=== PATIENT | female | born 1965 | race Caucasian/White ===

== ENCOUNTER 2025-04-22 17:19 | Inpatient (IN) ==
[2025-04-22] MEDS: ACETAMINOPHEN 1,000 MG/100 ML BAG IV ONE (17:52)
[2025-04-22 18:42] LABS: INR 1.2 (0.9-1.1); Prothrombin Time 16.7 sec (11.9-14.5)
[2025-04-22 18:46] LABS: ALT/SGPT 24 U/L (<40); AST/SGOT 37 U/L (<32); Albumin 3.0 gm/dL (3.2-5.2); Albumin/Globulin Ratio 0.9 (1.0-2.3); Alkaline Phosphatase 140 U/L (39-117); Anion Gap 16.0 (8.0-16.0); Bilirubin,Total 0.7 mg/dL (0.1-1.0); Blood Urea Nitrogen 37 mg/dL (6-20); Calcium 8.4 mg/dL (8.6-10.4); Carbon Dioxide 18 mmol/L (22-30); Chloride 91 mmol/L (96-108); Globulin 3.3 gm/dL (2.2-3.7); Glucose 315 mg/dL (70-105); Potassium 4.0 mmol/L (3.3-5.1); Sodium 125 mmol/L (133-145)
[2025-04-22 18:57] LABS: Basophils # (Auto) 0 K/mcL (0.00-0.30); Basophils % (Auto) 0 % (0.0-2.0); Eosinophils # (Auto) 0 K/mcL (0.00-0.70); Eosinophils % (Auto) 0 % (0.0-7.0); Hematocrit 39.6 % (34.1-44.9); Hemoglobin 13.4 g/dL (11.2-15.7); Lymphocytes # (Auto) 0.46 K/mcL (1.50-4.80); Lymphocytes % (Auto) 3.7 % (15.5-49.0); Mean Corpuscular HGB Conc 33.8 g/dL (31.0-36.0); Monocytes # (Auto) 0.38 K/mcL (0.10-0.90); Monocytes % (Auto) 3.0 % (1.0-12.0); Neutrophils % (Auto) 93.0 % (38.0-78.0); Platelet Count 110 K/mcL (140-440); RBC 4.40 M/mcL (3.59-5.38); WBC 12.5 K/mcL (4.5-11.0)
[2025-04-22] MEDS: KETOROLAC 15 MG/ML VIAL IV ONE (19:09)
[2025-04-22] MEDS: 0.9 % SODIUM CHLORIDE 1,915 ML IV ONE (19:13)
[2025-04-22] MEDS: PIPERACILLIN SODIUM/TAZOBACTAM 3.375 GM in DEXTROSE 5% IN WATER 50 ML IV ONE (20:05)
[2025-04-22 20:31] LABS: Bacteria,Urine Many /hpf (0); Bilirubin,Urine Negative (Negative); Color,Urine YELLOW; Glucose,Urine (UA) 250 mg/dL (Negative); Ketones,Urine TRACE mg/dL (Negative); Leukocyte Esterase,Urine MODERATE /uL (Negative); PH,Urine 6.0 (5.0-9.0); Protein,Urine 100 mg/dL (Negative); Specific Gravity,Urine 1.025 (1.000-1.035); Urobilinogen,Urine 1.0 mg/dL
[2025-04-22] MEDS ORDERED: fentaNYL 100 MCG/2 ML VIAL ONE (21:10)
[2025-04-22] MEDS ORDERED: PROPOFOL 200 MG/20 ML VIAL IV ONE (21:10)
[2025-04-22] MEDS ORDERED: FAMOTIDINE/PF 20 MG/2 ML VIAL IV ONE (21:11)
[2025-04-22] MEDS ORDERED: LIDOCAINE 2% PF 5 ML VIAL ONE (21:11)
[2025-04-22] MEDS ORDERED: ONDANSETRON 4 MG/2 ML VIAL ONE (21:11)
[2025-04-22] MEDS ORDERED: DEXAMETHASONE 10 MG/ML VIAL ONE (21:11)
[2025-04-22] MEDS ORDERED: GLYCOPYRROLATE 0.2 MG/ML VIAL IV ONE (21:11)
[2025-04-22] MEDS ORDERED: MAGNESIUM SULFATE 2 GM/50 ML BAG IV ONE (21:11)
[2025-04-22] MEDS ORDERED: PHENYLephrine 1 MG/10 ML SYRINGE (ANEST) ONE (21:25)
[2025-04-22] MEDS ORDERED: VASOPRESSIN 20 UNIT/ML VIAL ONE (21:25)
[2025-04-22] MEDS ORDERED: 0.9 % SODIUM CHLORIDE 100 ML IV ONE (21:25)
[2025-04-22] MEDS ORDERED: DEXTROSE 50% 50 ML VIAL IV PRN (21:33)
[2025-04-22] MEDS ORDERED: DEXTROSE 31 GM ORAL.SUSP PO PRN (21:33)
[2025-04-22] MEDS: IOVERSOL 50 ML VIAL IJ ONE (22:00)
[2025-04-22] MEDS: LIDOCAINE 2% URO-JET 10 ML JEL.PF.APP UR ONE (22:05)
[2025-04-22] MEDS ORDERED: ONDANSETRON 4 MG/2 ML VIAL IV PRN (22:06)
[2025-04-22] MEDS ORDERED: IPRATROPIUM/ALBUTEROL 3 ML AMPUL.NEB NEB PRN ×2 (22:06→22:57)
[2025-04-22] MEDS ORDERED: HYDROmorphone 0.5 MG/0.5 ML SYRINGE IV PRN (22:06)
[2025-04-22] MEDS ORDERED: METHOCARBAMOL 1,000 MG/10 ML VIAL IV PRN (22:06)
[2025-04-22] MEDS ORDERED: fentaNYL 100 MCG/2 ML VIAL IV PRN (22:06)
[2025-04-22] MEDS ORDERED: BENZOCAINE/MENTHOL 1 LOZENGE PO PRN (22:06)
[2025-04-22] MEDS ORDERED: NALOXONE HCL 0.4 MG/ML VIAL IV PRN (22:06)
[2025-04-22] MEDS ORDERED: NOREPINEPHRINE BITARTRATE 8 MG in 0.9 % SODIUM CHLORIDE 242 ML IV PRN (22:57)
[2025-04-22] MEDS ORDERED: ACETAMINOPHEN 1,000 MG/100 ML BAG IV PRN (22:57)
[2025-04-22] MEDS ORDERED: SENNOSIDES 1 TABLET PO PRN (22:57)
[2025-04-22] MEDS: LACTATED RINGERS 1,000 ML IV ONE (23:11)
[2025-04-22] MEDS: LACTATED RINGERS 1,000 ML IV SCH (23:15)
[2025-04-22] MEDS: CEFEPIME 2 GM VIAL IV SCH (23:15)
[2025-04-22] MEDS: 0.9 % SODIUM CHLORIDE 250 ML IV SCH (23:16)
[2025-04-22] MEDS: 0.9 % SODIUM CHLORIDE 10 ML SYRINGE IV SCH (23:16)
[2025-04-23] MEDS: CEFEPIME 1 GM VIAL ONE (00:10)
[2025-04-23 00:44] LABS: Anion Gap 15.5 (8.0-16.0); Blood Urea Nitrogen 39 mg/dL (6-20); Calcium 7.9 mg/dL (8.6-10.4); Carbon Dioxide 19 mmol/L (22-30); Chloride 94 mmol/L (96-108); Glucose 299 mg/dL (70-105); Potassium 4.3 mmol/L (3.3-5.1); Sodium 129 mmol/L (133-145)
[2025-04-23 00:54] LABS: C-Reactive Protein 39.70 mg/dL (0.03-0.80)
[2025-04-23 06:43] LABS: ALT/SGPT 27 U/L (<40); AST/SGOT 41 U/L (<32); Albumin 2.7 gm/dL (3.2-5.2); Albumin/Globulin Ratio 0.8 (1.0-2.3); Alkaline Phosphatase 103 U/L (39-117); Anion Gap 17.0 (8.0-16.0); Bilirubin,Direct 0.4 mg/dL (<0.3); Bilirubin,Total 0.6 mg/dL (0.1-1.0); Blood Urea Nitrogen 42 mg/dL (6-20); Calcium 8.3 mg/dL (8.6-10.4); Carbon Dioxide 17 mmol/L (22-30); Chloride 95 mmol/L (96-108); Globulin 3.6 gm/dL (2.2-3.7); Glucose 341 mg/dL (70-105); Phosphorous 2.8 mg/dL (2.5-4.5); Potassium 4.5 mmol/L (3.3-5.1); Sodium 129 mmol/L (133-145); Triglycerides 314 mg/dL (<150); Uric Acid 7.4 mg/dL (2.5-8.0)
[2025-04-23] MEDS: OMEPRAZOLE 20 MG CAPSULE PO SCH (07:34)
[2025-04-23 07:50] LABS: Basophils # (Auto) 0.01 K/mcL (0.00-0.30); Basophils % (Auto) 0.1 % (0.0-2.0); Eosinophils # (Auto) 0 K/mcL (0.00-0.70); Eosinophils % (Auto) 0 % (0.0-7.0); Hematocrit 38.3 % (34.1-44.9); Hemoglobin 12.5 g/dL (11.2-15.7); Lymphocytes # (Auto) 0.94 K/mcL (1.50-4.80); Lymphocytes % (Auto) 7.4 % (15.5-49.0); Mean Corpuscular HGB Conc 32.6 g/dL (31.0-36.0); Monocytes # (Auto) 0.49 K/mcL (0.10-0.90); Monocytes % (Auto) 3.9 % (1.0-12.0); Neutrophils % (Auto) 88.2 % (38.0-78.0); Platelet Count 77 K/mcL (140-440); RBC 4.04 M/mcL (3.59-5.38); WBC 12.7 K/mcL (4.5-11.0)
[2025-04-23] MEDS: INSULIN LISPRO 1 UNIT/0.01 ML UNIT SQ SCH (07:51)
[2025-04-23] MEDS: BACLOFEN 10 MG TABLET PO PRN (07:51)
[2025-04-23] MEDS: GABAPENTIN 300 MG CAPSULE PO PRN (07:51)
[2025-04-23] MEDS: ESCITALOPRAM 20 MG TABLET PO SCH (11:19)
[2025-04-23] MEDS: ATORVASTATIN 40 MG TABLET PO SCH (11:19)
[2025-04-23] MEDS: TOPIRAMATE 100 MG TABLET PO SCH (11:19)
[2025-04-23] MEDS: HEPARIN 5,000 UNIT/ML VIAL SQ SCH (11:19)
[2025-04-23] MEDS: POLYETHYLENE GLYCOL 3350 17 GM PACKET PO PRN (11:29)
[2025-04-23] MEDS: FLUTICASONE PROPIONATE SPRAY.NAS NS SCH (11:33)
[2025-04-23] MEDS: FLUTICASONE/SALMETEROL 500/50 INHALER #14 INH SCH (11:33)
[2025-04-23] MEDS: VARENICLINE TARTRATE 1 MG TABLET PO SCH (11:33)
[2025-04-23] MEDS: prednisoLONE 1% OPHTH DROPS 1ML BOTTLE OU SCH (20:56)
[2025-04-23] MEDS: INSULIN GLARGINE, HUMAN 1 UNIT/0.01 ML SQ ONE (21:06)
[2025-04-24 05:51] LABS: Basophils # (Auto) 0.01 K/mcL (0.00-0.30); Basophils % (Auto) 0.1 % (0.0-2.0); Eosinophils # (Auto) 0 K/mcL (0.00-0.70); Eosinophils % (Auto) 0 % (0.0-7.0); Hematocrit 36.7 % (34.1-44.9); Hemoglobin 12.4 g/dL (11.2-15.7); Lymphocytes # (Auto) 1.02 K/mcL (1.50-4.80); Lymphocytes % (Auto) 6.5 % (15.5-49.0); Mean Corpuscular HGB Conc 33.8 g/dL (31.0-36.0); Monocytes # (Auto) 0.84 K/mcL (0.10-0.90); Monocytes % (Auto) 5.3 % (1.0-12.0); Neutrophils % (Auto) 87.8 % (38.0-78.0); Platelet Count 95 K/mcL (140-440); RBC 3.95 M/mcL (3.59-5.38); WBC 15.8 K/mcL (4.5-11.0)
[2025-04-24 06:02] LABS: C-Reactive Protein 19.40 mg/dL (0.03-0.80)
[2025-04-24 06:04] LABS: ALT/SGPT 36 U/L (<40); AST/SGOT 53 U/L (<32); Albumin 2.7 gm/dL (3.2-5.2); Albumin/Globulin Ratio 0.8 (1.0-2.3); Alkaline Phosphatase 100 U/L (39-117); Anion Gap 15.0 (8.0-16.0); Bilirubin,Direct 0.2 mg/dL (<0.3); Bilirubin,Total 0.4 mg/dL (0.1-1.0); Blood Urea Nitrogen 36 mg/dL (6-20); Calcium 8.8 mg/dL (8.6-10.4); Carbon Dioxide 18 mmol/L (22-30); Chloride 100 mmol/L (96-108); Globulin 3.3 gm/dL (2.2-3.7); Glucose 270 mg/dL (70-105); Phosphorous 2.1 mg/dL (2.5-4.5); Potassium 4.0 mmol/L (3.3-5.1); Sodium 133 mmol/L (133-145); Triglycerides 384 mg/dL (<150); Uric Acid 7.5 mg/dL (2.5-8.0)
[2025-04-24] MEDS: ONDANSETRON 4 MG/2 ML VIAL IV PRN (08:04)
[2025-04-24] MEDS: INSULIN GLARGINE, HUMAN 1 UNIT/0.01 ML SQ SCH (09:21)
[2025-04-24] MEDS: LEVOFLOXACIN 750 MG/150 ML BAG IV ONE (10:29)
[2025-04-24] MEDS: INSULIN GLARGINE, HUMAN 1 UNIT/0.01 ML SQ ONE (11:33)
[2025-04-24] MEDS: INSULIN LISPRO 1 UNIT/0.01 ML UNIT SQ SCH (11:34)
[2025-04-24] MEDS: KETOROLAC TROMETHAMINE 1 GTT BOTTLE OU SCH (16:59)
[2025-04-24] MEDS: NEUTRA PHOS 1 PACKET PO ONE (17:12)
[2025-04-25 06:48] LABS: ALT/SGPT 48 U/L (<40); AST/SGOT 51 U/L (<32); Albumin 2.5 gm/dL (3.2-5.2); Albumin/Globulin Ratio 0.8 (1.0-2.3); Alkaline Phosphatase 86 U/L (39-117); Anion Gap 12.0 (8.0-16.0); Bilirubin,Direct 0.3 mg/dL (<0.3); Bilirubin,Total 0.5 mg/dL (0.1-1.0); Blood Urea Nitrogen 29 mg/dL (6-20); Calcium 8.8 mg/dL (8.6-10.4); Carbon Dioxide 21 mmol/L (22-30); Chloride 103 mmol/L (96-108); Globulin 3.1 gm/dL (2.2-3.7); Glucose 175 mg/dL (70-105); Phosphorous 2.4 mg/dL (2.5-4.5); Potassium 3.9 mmol/L (3.3-5.1); Sodium 136 mmol/L (133-145); Triglycerides 366 mg/dL (<150); Uric Acid 6.7 mg/dL (2.5-8.0)
[2025-04-25 06:49] LABS: C-Reactive Protein 8.47 mg/dL (0.03-0.80)
[2025-04-25 07:53] LABS: Basophils # (Auto) 0.04 K/mcL (0.00-0.30); Basophils % (Auto) 0.4 % (0.0-2.0); Eosinophils # (Auto) 0.03 K/mcL (0.00-0.70); Eosinophils % (Auto) 0.3 % (0.0-7.0); Hematocrit 35.0 % (34.1-44.9); Hemoglobin 12.1 g/dL (11.2-15.7); Lymphocytes # (Auto) 1.11 K/mcL (1.50-4.80); Lymphocytes % (Auto) 10.2 % (15.5-49.0); Mean Corpuscular HGB Conc 34.6 g/dL (31.0-36.0); Monocytes # (Auto) 0.88 K/mcL (0.10-0.90); Monocytes % (Auto) 8.1 % (1.0-12.0); Neutrophils % (Auto) 79.9 % (38.0-78.0); Platelet Count 120 K/mcL (140-440); RBC 3.87 M/mcL (3.59-5.38); WBC 10.9 K/mcL (4.5-11.0)
[2025-04-25] MEDS: INSULIN GLARGINE, HUMAN 1 UNIT/0.01 ML SQ SCH (09:41)
[2025-04-25] MEDS: LEVOFLOXACIN 750 MG/150 ML BAG IV ONE (11:09)
[2025-04-25] MEDS ORDERED: NEUTRA PHOS 1 PACKET PO SCH (21:00)
[2025-04-26] MEDS ORDERED: LEVOFLOXACIN 750 MG TABLET PO SCH (09:00)
== END 2025-04-25 14:15 | disposition home health service (06) | DRG 872 ==
LOC: ED 17:19 → SUR 21:21 → ICU 22:38
PROVIDERS: ADMIT Student in an Organized Health Care Education/Training Program; ATTEND Student in an Organized Health Care Education/Training Program